=== PATIENT | male | born 1960 ===

== ENCOUNTER 2019-01-16 09:54 | Emergency (ER) | payer BC ==
[2019-01-16 10:28] VITALS: BMI 22.9
[2019-01-16 11:01] LABS: BASO % 0.9 % (0.0-2.0); EOS % 0.7 % (0.0-4.0); HEMOGLOBIN 12.2 g/dL (12.0-18.0); LYMPH % 29.3 % (20.0-40.0); MEAN CELL VOLUME 75.6 fl (80.0-94.0); MEAN CORPUSCULAR HEMOGLOBIN 24.7 pg (27.0-31.0); MEAN CORPUSCULAR HGB CONC 32.6 g/dL (33.0-37.0); MEAN PLATELET VOLUME 6.9 fl (7.2-11.7); MONO # 0.4 K/uL (0.0-0.8); MONO % 10.1 % (0.0-10.0); NEUT # 2.1 K/uL (1.8-7.0); NRBC % 0.1 % (0.0-0.0); RBC 4.93 Mil/uL (4.40-5.90); RED CELL DISTRIBUTION WIDTH 16.6 % (11.5-14.5); WHITE BLOOD COUNT 3.5 K/uL (4.8-10.8)
--- NOTE | 2019-01-16 11:05 | RAD ---
Date of service: 01/16/2019 HISTORY: cough COMPARISON: No prior. TECHNIQUE: Chest PA and lateral views FINDINGS: LUNGS: No acute infiltrates bilaterally. A small nodule seen the inferior left lung zone likely at the left lower lobe anteriorly. Is best appreciated in the PA projection and is question at the inferior left lung zone in the lateral projection. This appears relatively dense, more dense than the nearly adjacent anterior segment left 8th rib and likely reflects a calcified granuloma. PLEURA: No significant pleural effusion identified. No pneumothorax apparent. CARDIOVASCULAR: No aortic atherosclerotic calcification present. Normal cardiac size. No pulmonary vascular congestion. OSSEOUS STRUCTURES: No significant abnormalities. VISUALIZED UPPER ABDOMEN: Normal. OTHER FINDINGS: None. IMPRESSION: No acute cardiopulmonary disease appreciable. Sub cm likely calcified granuloma left base left lower lobe. No prior comparison available.
[2019-01-16 11:24] LABS: BLOOD UREA NITROGEN 13 mg/dl (9-20); CALCIUM 9.5 mg/dL (8.4-10.2); GFR NON-AFRICAN AMERICAN > 60
--- NOTE | 2019-01-16 11:25 | ED PDOC ---
HPI: Chest Pain Time Seen by Provider: 01/16/19 10:07 Chief Complaint (Nursing): Chest Pain History Per: Patient Onset/Duration Of Symptoms: Days, Worse Since (last night) Current Symptoms Are (Timing): Still Present Pain Scale Rating Of: 6 Quality: Pressure Additional Complaint(s): 58 yo m with newly diagnosed HTN on amlodipine and HCTZ presents to the emergency department with one month of worsening chest pain. PT describes pain more as a pressure without radiation. No associated SOB, nausea, weakness, or dizziness. PMD:Colin Fortune Past Medical History - Medical History PMH: HTN - Family History Family History: States: No Known Family Hx - Allergies Allergies/Adverse Reactions: Allergies Allergy/AdvReac Type Severity Reaction Status Date / Time No Known Allergies Allergy Verified 01/16/19 10:27 MARGUERITE Risk Score for UA/NSTEMI - MARGUERITE Risk Score Age > 64: NO 3 or more CAD Risk Factors: NO Known CAD (Stenosis greater than 50%): NO Aspirin use in past 7 days: NO EKG ST changes greater than 0.5mm: NO MARGUERITE Score: 0 Risk %: 5% Physical Exam - Reviewed Vital Signs Reviewed: Yes - Physical Exam Appears: Positive for: Well, Non-toxic, No Acute Distress Head Exam: Positive for: ATRAUMATIC Skin: Positive for: Normal Color, Warm, Dry. Negative for: Diaphoresis Eye Exam: Positive for: Normal appearance Neck: Positive for: Normal Cardiovascular/Chest: Positive for: Regular Rate, Rhythm, Chest Non Tender. Negative for: Edema, JVD, Murmur Respiratory: Positive for: Normal Breath Sounds Pulses-Carotid (L): 2+ Pulses-Carotid (R): 2+ Pulses-Radial (L): 2+ Pulses-Radial (R): 2+ Gastrointestinal/Abdominal: Positive for: Normal Exam Back: Positive for: Normal Inspection Extremity: Positive for: Normal ROM Neurological/Psych: Positive for: Awake, Alert, Normal Tone - Laboratory Results Result Diagrams: 01/16/19 10:35 01/16/19 10:35 Medical Decision Making Medical Decision Makin yo M with one month of chest pressure. Workup for cardiac etiology. Only known risk factor is HTN. labs with troponin EKG CXR ASA reassess pt 1400 Labs reviewed and within normal limtis CXR reviewed and with no acute findings Patient reports continued pressure like chest pain, left sided Will do repeat 4 hour troponin, will admit if abnormal 1412 Patient declining troponin test at this time Patient to be discharged home, return precautions given. HEART score: 2 Risk of MACE 0.9-1.7% Disposition - Disposition Forms: [facility] ([place]el[place])
[2019-01-16 11:35] LABS: B-TYPE NATRIURETIC PEPTIDE 21.4 pg/ml (0-900)
[2019-01-16 12:48] VITALS: O2SAT 100
[2019-01-16 13:53] VITALS: TEMP 97.8
[2019-01-16 14:35] VITALS: BP 112/68; PULSE 82; RESP 16
--- NOTE | 2019-01-17 16:43 | CARD ---
APPROVED REPORT Date of service: 01/16/2019 EKG Measurement Heart [id number] <Conclusion> Normal sinus rhythm Possible Left atrial enlargement Borderline ECG
== END 2019-01-16 14:20 | disposition home or self-care (01) ==
LOC: H.ER 09:54
DX: R07.89 Other chest pain (principal); I10 Essential (primary) hypertension